=== PATIENT | male | born 1965 | race Caucasian/White ===

== ENCOUNTER 2016-06-12 07:15 | Inpatient (IN) | payer BC ==
[~2016-06-12] VITALS: Ht 177.8 cm; Wt 87.9 kg
[2016-07-09 10:32] VITALS: Ht 177.8 cm; Wt 87.9 kg
[2016-07-09 10:51] VITALS: BP_SYST 146; TEMP 97.5
[2016-07-13] VITALS (15 sets, daily range): BP systolic 120–156; RESP 11–20; TEMP 96.9–98.3
[2016-07-13] MEDS ORDERED: CEFAZOLIN 2,000 MG in SODIUM CHLORIDE 0.9% 100 ML IV ONE (07:15)
[2016-07-13] MEDS ORDERED: LIDOCAINE 1% BUFFERED 1 ML SYR INTRADERM PRN (08:25)
[2016-07-13] MEDS ORDERED: GLYCOPYRROLATE 0.2 MG/ML VIAL IV ONE (08:25)
[2016-07-13] MEDS ORDERED: LACT RINGERS 1,000 ML IV SCH (08:25)
[2016-07-13] MEDS ORDERED: MIDAZOLAM 2 MG/2 ML INJ IV ONE (08:25)
[2016-07-13] MEDS ORDERED: MORPHINE 2 MG/ML SYR IV PRN (09:20)
[2016-07-13] MEDS ORDERED: MEPERIDINE 25 MG/ML IV PRN (09:20)
[2016-07-13] MEDS ORDERED: OXYCODONE 5 MG TAB PO PRN (09:20)
[2016-07-13] MEDS ORDERED: ONDANSETRON 4 MG VIAL IV PRN ×2 (09:20→12:00)
[2016-07-13] MEDS ORDERED: MORPHINE 4 MG/ML SYR IV PRN (09:20)
[2016-07-13] MEDS ORDERED: CHLORASEPTIC 180 ML BTL PO PRN (12:00)
[2016-07-13] MEDS ORDERED: ACETAMINOPHEN 325 MG TAB PO PRN (12:00)
[2016-07-13] MEDS ORDERED: SODIUM CHLORIDE 0.9% 1,000 ML IV SCH (12:00)
[2016-07-13] MEDS: DILAUDID 1 MG/ML AMP IV PRN ×2 (12:01→12:17)
[2016-07-13] MEDS: GABAPENTIN 300 MG CAP PO SCH ×3 (12:51→19:42)
[2016-07-13] MEDS: MORPHINE 2 MG/ML SYR IV PRN ×2 (13:06→18:16)
[2016-07-13] MEDS ORDERED: PROPOFOL 20 ML PER ML IV ONE (14:01)
[2016-07-13] MEDS ORDERED: BACITRACIN 50,000 UNITS INJ IRRIG ONE (14:23)
[2016-07-13] MEDS ORDERED: THROMBIN 5000 UNIT KIT TOPICAL ONE (14:23)
[2016-07-13] MEDS ORDERED: BUPIVACA/EPI 0.25% PF 30ML NERVEBLOCK ONE (14:23)
[2016-07-13] MEDS ORDERED: GELATIN SPONGE 12 CM2 TOPICAL ONE (14:23)
[2016-07-13] MEDS: DOCUSATE SOD 100 MG CAP PO SCH ×2 (14:33→19:42)
[2016-07-13] MEDS: GEMFIBROZIL 600 MG TAB PO SCH ×2 (14:33→19:42)
[2016-07-13] MEDS: METHOCARBAMOL 750 MG TAB PO SCH ×3 (14:34→19:42)
[2016-07-13] MEDS: LISINOPRIL 10 MG TAB PO SCH (14:34)
[2016-07-13] MEDS: OXYCODONE/APAP 5/325 TAB PO PRN ×3 (14:34→19:43)
[2016-07-13] MEDS: CEFAZOLIN 2,000 MG in SODIUM CHLORIDE 0.9% 100 ML IV SCH (18:11)
[2016-07-13] MEDS: MORPHINE 4 MG/ML SYR IV PRN (21:46)
[2016-07-13] MEDS ORDERED: CALC CARB 500 MG CHEWTAB PO PRN (22:35)
[2016-07-14] MEDS: OXYCODONE/APAP 5/325 TAB PO PRN ×2 (00:36→06:48)
[2016-07-14] MEDS: CEFAZOLIN 2,000 MG in SODIUM CHLORIDE 0.9% 100 ML IV SCH ×2 (00:37→08:15)
[2016-07-14 03:49] VITALS: BP_SYST 128; RESP 16; TEMP 98
[2016-07-14] MEDS: MORPHINE 4 MG/ML SYR IV PRN ×2 (04:01→09:41)
[2016-07-14 07:40] VITALS: BP_SYST 119; RESP 16; TEMP 97.5
[2016-07-14] MEDS: GEMFIBROZIL 600 MG TAB PO SCH (08:15)
[2016-07-14] MEDS: METHOCARBAMOL 750 MG TAB PO SCH (08:15)
[2016-07-14] MEDS: GABAPENTIN 300 MG CAP PO SCH (08:15)
[2016-07-14] MEDS: DOCUSATE SOD 100 MG CAP PO SCH (08:15)
[2016-07-14] MEDS: LISINOPRIL 10 MG TAB PO SCH (08:15)
[2016-07-14 09:25] VITALS: BP_SYST 119; RESP 16; TEMP 97.5
[2016-07-14] MEDS ORDERED: ACETAMINOPHEN 1,000 MG/100 ML IV ONE (10:43)
[2016-07-14] MEDS ORDERED: GLYCOPYRROLATE 0.2 MG/ML VIAL IV ONE (10:43)
[2016-07-14] MEDS ORDERED: DILAUDID 1 MG/ML AMP IV ONE (10:43)
[2016-07-14] MEDS ORDERED: ROCURONIUM 50 MG VIAL IV ONE (10:43)
[2016-07-14] MEDS ORDERED: FENTANYL 100 MCG/2 ML AMP IV ONE (10:43)
[2016-07-14] MEDS ORDERED: ONDANSETRON 4 MG VIAL IV PUSH ONE (10:43)
[2016-07-14] MEDS ORDERED: NEOSTIGMINE 10 MG/10 ML VIAL IV ONE (10:43)
[2016-07-14] MEDS ORDERED: LIDOCAINE 2% SYR 5 ML IV ONE (10:43)
[2016-07-14] MEDS ORDERED: DEXAMETHASONE 4 MG/ML VIAL IV ONE (10:43)
[2016-07-14] MEDS ORDERED: ESMOLOL 100 MG/10 ML VL IV ONE (10:43)
== END 2016-07-14 10:44 | disposition home or self-care (01) | DRG 472 ==
LOC: ENRESERVDT → ENRESERVTM → SDS 07-13 07:04 → ENPENDDIS 07-13 07:04 → 5THE 07-13 12:40
PROVIDERS: ADMIT Neurological Surgery; ATTEND Neurological Surgery
PROC: 0RG20K0 Fusion of 2 or more Cervical Vertebral Joints with Nonautologous Tissue Substitute, Anterior Approach, Anterior Column, Open Approach (ICD-10-PCS; principal; 2016-07-13 09:17)
DX: M48.02 Spinal stenosis, cervical region (principal); G95.89 Other specified diseases of spinal cord; I95.9 Hypotension, unspecified; Z87.891 Personal history of nicotine dependence; R55 Syncope and collapse; Z28.21 Immunization not carried out because of patient refusal
CPT/HCPCS: 76000; 93005